=== PATIENT | male | born 1950 | race Caucasian/White ===

== ENCOUNTER 2023-01-26 05:05 | Emergency (ER) | payer OTHER ==
[~2023-01-26] VITALS: Ht 177.8 cm; Wt 63.5 kg
[2023-01-26 05:10] VITALS: BP_SYST 142
--- NOTE | 2023-01-26 05:14 | NUR ---
PT [facility] [id number] C/O LEFT GROIN PAIN. NKDA. AMBULATORY W/ STEADY GAIT. PT NOW DENIES ANY PAIN. CONTINENT OF B & B. PMH: HERNIA
--- NOTE | 2023-01-26 05:15 | NUR ---
Placed in room 02 . Placed on satellite project site monitor, blood pressure machine and pulse oximeter. To gown for exam. Side rails up. Report given to ELIJAH WALKER.
--- NOTE | 2023-01-26 05:20 | NUR ---
Received in bed 2, A&OX4, c/o of L groin pain but subsided in the ER already.
--- NOTE | 2023-01-26 05:24 | NUR ---
ER Dr. Petit at bedside examining patient.
[2023-01-26] MEDS ORDERED: ACETAMINOPHEN 500 MG TABLET PO ONE (05:30)
--- NOTE | 2023-01-26 06:20 | NUR ---
Patient given written and verbal discharge instructions and verbalizes understanding. ER MD Dr. Petit discussed with patient the results and treatment provided. Patient in stable condition. ID arm band removed. Patient educated on pain management and to follow up with PMD. Pain Scale 0/10. Opportunity for questions provided and answered. Medication side effect fact sheet provided.
--- NOTE | 2023-01-26 12:12 | NUR ---
Production Lead re: homelessness Received social service referral for homelessness. Upon reviewing the ED summary, it is determined that the patient is not homeless, has a stable living condition, and has adequate family support in place. The patient was discharged home with no social service needs in place. This patient was not seen as the patient has already left the hospital. I spoke with CN ELIJAH Silva in the ED to advise her that the patient is not homeless and in need of a code correction. She advised she would contact the nurse who completed the triage assessment for the code correction. A copy of the needed code correction was provided to her for her review as well as the CNO and director of the ED.
== END 2023-01-26 06:20 | disposition home or self-care (01) ==
LOC: SED 05:05
DX: K46.9 Unspecified abdominal hernia without obstruction or gangrene (principal); R10.32 Left lower quadrant pain; Z79.899 Other long term (current) drug therapy
CPT/HCPCS: 99283